=== PATIENT | male | born 1985 | race Caucasian/White ===

== ENCOUNTER 2018-09-12 17:29 | Emergency (ER) | payer SELFPAY ==
[~2018-09-12] VITALS: Ht 175.3 cm; Wt 80.3 kg
--- NOTE | 2018-09-12 17:38 | NUR ---
PT TO ER BED 8
[2018-09-12 17:39] VITALS: BP 118/79
--- NOTE | 2018-09-12 17:50 | NUR ---
33 YO M BIB SELF W/ C/O LEFT ARMPIT ABSCESS. PT REPORTS THAT THIS HAS HAPPENED BEFORE ABOUT 2 MONTHS AGO AND PMD GAVE ABX AND IT POPPED ON ITS OWN. PT W/ LARGE ERYTHEMOUS, HOT LUMP TO LEFT ARMPIT. DENIES N/V/D/FEVER.
--- NOTE | 2018-09-12 18:02 | NUR ---
Patient being evaluated by physician at bedside.
[2018-09-12] MEDS ORDERED: CLINDAMYCIN 600 MG/4 ML VIAL IM ONE (18:10)
[2018-09-12] MEDS ORDERED: KETOROLAC 60 MG/2 ML VIAL IM ONE (18:10)
[2018-09-12] MEDS ORDERED: LIDOCAINE 1% 500 MG/50 ML VIAL INJ ONE (18:25)
[2018-09-12] MEDS ORDERED: HYDROmorphone 1 MG/ML AMP IM ONE (18:25)
[2018-09-12] MEDS ORDERED: NEOMYCIN/POLYMYXIN/BACITRACIN 0.9 GM/1 PKT TP ONE (18:25)
[2018-09-12] MEDS ORDERED: LIDOCAINE MPF 1% - 5 mL VIAL 10 ML ONE (18:42)
--- NOTE | 2018-09-12 19:15 | NUR ---
ASSUMED CARE OF PT AT THIS TIME, PT LAYING IN BED, STATES HE HAS PAIN RELIEF, WAITING FOR PARENTS TO COME TO GIVE HIM RIDE HOME.
[2018-09-12 19:40] VITALS: BP 127/70
--- NOTE | 2018-09-12 19:43 | NUR ---
Patient discharged with v/s stable. Written and verbal after care instructions given and explained. Patient alert, oriented and verbalized understanding of instructions. Ambulatory with steady gait. All questions addressed prior to discharge. ID band removed. Patient advised to follow up with PMD. Rx of motrin, tramadol, clindamycin given. Patient educated on indication of medication including possible reaction and side effects. Opportunity to ask questions provided and answered.
== END 2018-09-12 19:40 | disposition home or self-care (01) ==
LOC: MED 17:29
DX: L02.412 Cutaneous abscess of left axilla (principal); E11.9 Type 2 diabetes mellitus without complications
CPT/HCPCS: 10060; 90471; 90715; 96372; 99283; J1170; J1885; J2001; J3490

== ENCOUNTER 2020-11-04 17:24 | Emergency (ER) | payer MEDICAID ==
[~2020-11-04] VITALS: Ht 177.8 cm; Wt 86.2 kg
[2020-11-04 17:29] VITALS: BP 77/31
--- NOTE | 2020-11-04 17:30 | NUR ---
35 YO M BIB SELF FROM HOME FOR C/C OF 06/17 LACERATION TO LEFT THUMB S/P SKILL SAW INJURY. PT REPORTS NUMBNESS/TINGELING ON LEFT THUMB. PT ABLE TO MOVE HIS THUMB LEFT AND RIGHT, CAP REFILL <3, RADIAL PULSES EQUAL AND REGULAR. BLEEDING CONTROLLED AT THIS TIME. PT DOES NOT RECALL HIS LAST TDAP VACCINE, DENIES USE OF OTC MEDS FOR PAIN BED LOCKED AND IN LOWEST POSITION. SIDE RAILS X1. MED HX: DENIES NO RX NKA
[2020-11-04] MEDS ORDERED: HYDROcodone/APAP 5/325 MG 1 TAB TAB PO ONE (17:35)
[2020-11-04] MEDS ORDERED: KETOROLAC 30 MG/ML VIAL IM ONE (17:35)
--- NOTE | 2020-11-04 17:40 | NUR ---
RAD AT BEDSIDE
[2020-11-04] MEDS ORDERED: LIDOCAINE MPF 1% 10 MG/ML VIAL INJ ONE (17:55)
--- NOTE | 2020-11-04 18:06 | NUR ---
PT LAC IRRIGATED WITH NORMAL ZULEIKA MEHTA NOTIFIED
--- NOTE | 2020-11-04 18:23 | NUR ---
ZULEIKA Aguilar at bedside for laceration repair.
[2020-11-04] MEDS ORDERED: BACITRACIN OINT 500 UNITS/GM PKT TP ONE (18:30)
--- NOTE | 2020-11-04 18:35 | NUR ---
CONSENT FOR TDAP RECIEVED FROM PT
[2020-11-04] MEDS ORDERED: BACI1PAC6 TP (18:43)
[2020-11-04] MEDS ORDERED: CEPH500C16 PO ×2 (18:43→18:54)
[2020-11-04] MEDS ORDERED: IBUP-2213 PO ×2 (18:43→18:54)
[2020-11-04] MEDS ORDERED: ACET-8386 PO ×2 (18:43→18:45)
--- NOTE | 2020-11-04 18:50 | NUR ---
APPLIED BACITRACIN TO PT LAC, PT LAC CLEANED WITH NORMAL SALINE AND DRESSED WITH NON-ADHERENT GAUZE PAD, PT LAC PLACED IN 4" FINGER SPLINT AND WRAPPED WITH 2" GAUZE ROLL. PA NOTIFIED
[2020-11-04] MEDS ORDERED: BACI500P (18:54)
[2020-11-04 19:00] VITALS: BP 102/41
--- NOTE | 2020-11-04 19:00 | NUR ---
Patient discharged with v/s stable. Written and verbal after care instructions given and explained. Patient alert, oriented and verbalized understanding of instructions. Ambulatory with steady gait. All questions addressed prior to discharge. ID band removed. Patient advised to follow up with PMD. Rx of BACITRACIN, NORCO, MOTRIN, KEFLEX given. Patient educated on indication of medication including possible reaction and side effects. Opportunity to ask questions provided and answered.
== END 2020-11-04 19:00 | disposition home or self-care (01) ==
LOC: MED 17:24
DX: S61.012A Laceration without foreign body of left thumb without damage to nail, initial encounter (principal); Z79.899 Other long term (current) drug therapy; W26.8XXA Contact with other sharp object(s), not elsewhere classified, initial encounter; Y93.89 Activity, other specified; Y92.89 Other specified places as the place of occurrence of the external cause; Y99.8 Other external cause status
CPT/HCPCS: 12001; 73130; 90471; 90715; 96372; 99284; J1885; J2001